=== PATIENT | female | born 1955 | race Asian ===

== ENCOUNTER 2018-06-26 15:08 | Outpatient (CLI) | payer BC ==
--- NOTE | 2018-06-26 18:42 | RAD ---
LEFT WRIST THREE VIEWS: 06/26/2018 FINDINGS: No acute fracture is seen. The carpal relationships are normal. There may be the beginnings of a li ttle degenerative changes in the first carpometacarpal joint. A little irregularity is seen at the u lnar aspect of the distal radius, suggesting that there might have been old trauma here. I do not se e any acute change. IMPRESSION: Minor changes, as listed above, without acute findings. POS: HOME
== END 2018-06-26 15:09 | disposition home or self-care (01) ==
LOC: BURRAD 15:08
PROVIDERS: ATTEND Family Medicine
DX: M25.532 Pain in left wrist (principal)

== ENCOUNTER 2018-08-30 09:57 | Outpatient (CLI) | payer BC ==
--- NOTE | 2018-08-30 18:43 | RAD ---
CHEST TWO VIEWS: 08/30/18 Comparison is made with a 09/14/10 study. The heart is normal in size and the lungs are clear. No infiltrate or effusion was seen. There has be en no adverse telephone exchange operator time. The mediastinum appears normal and the trachea is midline. IMPRESSION: No significant thoracic finding. POS: HOME
== END 2018-08-30 09:58 | disposition home or self-care (01) ==
LOC: BURRAD 09:57
PROVIDERS: ATTEND Family Medicine
DX: Z01.818 Encounter for other preprocedural examination (principal)
CPT/HCPCS: 71046

== ENCOUNTER 2018-11-29 10:51 | Outpatient (CLI) | payer BC ==
--- NOTE | 2018-11-29 13:18 | RAD ---
RADIOGRAPH CERVICAL SPINE 3 VIEWS: 11/29/18 HISTORY: 63-year-old female with cervicalgia and cervical radiculopathy. FINDINGS: Atlanto-axial joints are bilaterally normal. Vertebral body heights are maintained. No high grade dis c space narrowing at any level. Mild anterolisthesis of C3 on C4, C4 on C5, C5 on C6, and C6 on C7, d ue to bilateral facet DJD. No prevertebral soft tissue swelling. IMPRESSION: 1. Multilevel bilateral facet osteoarthrosis. 2. No evidence of high grade degenerative disc disease. JN [] POS: [facility]
== END 2018-11-29 10:52 | disposition home or self-care (01) ==
LOC: BURRAD 10:51
PROVIDERS: ATTEND Family Medicine
DX: M47.22 Other spondylosis with radiculopathy, cervical region (principal)
CPT/HCPCS: 72040